=== PATIENT | male | born 1985 | race Caucasian/White ===

== ENCOUNTER 2020-03-10 07:25 | Outpatient (CLI) | payer SELFPAY | END 2020-03-10 07:26 | disposition critical access hospital (66) | LOC: EMS 07:25 | PROVIDERS: ATTEND Surgery | DX: R46.89 Other symptoms and signs involving appearance and behavior (principal); R41.82 Altered mental status, unspecified | CPT/HCPCS: A0425; A0429 ==

== ENCOUNTER 2020-03-10 07:48 | Emergency (ER) | payer SELFPAY ==
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
[2020-03-10 08:55] LABS: ACETAMINOPHEN < 10 ug/mL (10-30); ALBUMIN 4.7 g/dL (3.2-5.5); ALBUMIN/GLOBULIN RATIO 1.9 (1.0-2.2); ALKALINE PHOSPHATASE 43 IU/L (42-121); ALT ALANINE AMINOTRANSFERASE 17 IU/L (10-60); AST ASPARTATE AMINOTRANSFERASE 34 IU/L (10-42); BILIRUBIN,TOTAL 1.4 mg/dL (0.2-1.0); BUN - BLOOD UREA NITROGEN 17 mg/dL (6-20); CALCIUM 9.3 mg/dL (8.5-10.3); CARBON DIOXIDE - CO2 24 mmol/L (21-32); CHLORIDE 98 mmol/L (101-111); GLUCOSE 174 mg/dL (70-100); LIPASE 26 U/L (22-51); SALICYLATE < 6.0 mg/dL; SODIUM 138 mmol/L (135-145); TOTAL PROTEIN 7.2 g/dL (6.7-8.2)
[2020-03-10 09:00] LABS: BASOPHILS # (AUTO) 0.1 10^3/uL (0.0-0.1); BASOPHILS % (AUTO) 0.6 %; EOSINOPHILS % (AUTO) 0.3 %; LYMPHOCYTES # (AUTO) 0.9 10^3/uL (1.5-3.5); LYMPHOCYTES % (AUTO) 8.1 %; MEAN CORPUSCULAR HEMOGLOBIN 30.1 pg (27.0-31.0); MEAN CORPUSCULAR HGB CONC 34.1 g/dL (32.0-36.0); MEAN CORPUSCULAR VOLUME 88.2 fL (80.0-94.0); MEAN PLATELET VOLUME 10.6 fL (7.4-11.4); MONOCYTES # (AUTO) 0.6 10^3/uL (0.0-1.0); MONOCYTES % (AUTO) 5.5 %; NEUTROPHILS # (AUTO) 9.8 10^3/uL (1.5-6.6); NEUTROPHILS % (AUTO) 85.1 %; PLT - PLATELET COUNT 264 10^3/uL (130-450); RED BLOOD COUNT 4.65 10^6/uL (4.70-6.10); RED CELL DISTRIBUTION WIDTH 12.3 % (12.0-15.0); WHITE BLOOD COUNT 11.6 x10^3/uL (4.8-10.8)
[2020-03-10] MEDS ORDERED: OLANZapine 10 MG VIAL IM STA ×2 (09:02→09:25)
[2020-03-10] MEDS ORDERED: KETAMINE 500 MG/10 ML VIAL IM STA (09:07)
[2020-03-10] MEDS ORDERED: KETAMINE 500 MG/10 ML VIAL ONE (09:12)
[2020-03-10] MEDS ORDERED: SODIUM CHLORIDE 0.9% 1,000 ML IV STA ×3 (09:26→14:15)
[2020-03-10] MEDS ORDERED: KETAMINE 500 MG/10 ML VIAL IVP STA (09:32)
[2020-03-10 09:50] LABS: KETONES, SERUM (ACETEST) SMALL (NEGATIVE)
[2020-03-10 09:58] LABS: CK- CREATINE KINASE 708 IU/L (22-269)
[2020-03-10 10:19] LABS: GLUCOSE, URINE (UA) NEGATIVE (NEGATIVE); KETONES,URINE (UA) >=80 mg/dL (NEGATIVE); LEUKOCYTE ESTERASE, URINE NEGATIVE (NEGATIVE); NITRITE,URINE NEGATIVE (NEGATIVE); OCCULT BLOOD,URINE NEGATIVE (NEGATIVE); PROTEIN,URINE 30 mg/dL (NEGATIVE); UROBILINOGEN,URINE 0.2 (NORMAL) E.U./dL (NORMAL)
[2020-03-10 10:26] LABS: CLARITY,URINE HAZY (CLEAR)
[2020-03-10 10:27] LABS: VBG BASE EXCESS -2.4 mmol/L (-2 - +2); VBG PCO2 40.5 mmHg (41-51); VBG PH 7.367 (7.31-7.41); VBG PO2 89.9 mmHg (25-47)
[2020-03-10 10:28] LABS: BILIRUBIN,URINE NEGATIVE (NEGATIVE); ICTOTEST,URINE NEGATIVE
[2020-03-10 10:30] LABS: AMPHETAMINE SCREEN,URINE NEGATIVE (NEGATIVE); BENZODIAZEPINES SCREEN, URINE NEGATIVE (NEGATIVE); COCAINE SCREEN URINE NEGATIVE (NEGATIVE); METHADONE SCREEN, URINE NEGATIVE (NEGATIVE); METHAMPHETAMINES SCREEN, URINE NEGATIVE (NEGATIVE); MUDS CUTOFF CONCENTRATIONS N; OPIATE SCREEN, URINE NEGATIVE (NEGATIVE); OXYCODONE SCREEN, URINE NEGATIVE (NEGATIVE); PROPOXYPHENE SCREEN, URINE NEGATIVE (NEGATIVE); TRICYCLIC ANTIDEPRESSANT,URINE NEGATIVE (NEGATIVE)
[2020-03-10 10:45] LABS: RBC,URINE None Seen /HPF (0-5)
[2020-03-10 10:46] LABS: BACTERIA,URINE Few /HPF (None Seen); CRYSTALS,URINE 0-2 Calcium Oxalate /LPF; EPITHELIAL CELLS,UR RARE Transitional /HPF (<= Few); MUCUS,URINE Moderate Strands; SQUAMOUS EPITHELIAL CELL,UR RARE Squamous (<= Few)
--- NOTE | 2020-03-10 13:23 | CT Report ---
PROCEDURE: HEAD WO INDICATIONS: altered LOC TECHNIQUE: Noncontrast 4.5 mm thick angled axial sections acquired from the foramen magnum to the vertex. For r adiation dose reduction, the following was used: automated exposure control, adjustment of mA and/or kV according to patient size. COMPARISON: None. FINDINGS: Image quality: Study is degraded by moderate patient motion artifact. CSF spaces: Basal cisterns are patent. No extra-axial fluid collections. Ventricles are normal in size and shape. Brain: No midline shift. No intracranial masses or hemorrhage. Smith-white matter interface is norm al. Skull and face: Calvarium and visualized facial bones are intact, without suspicious lesions. Sinuses: Visualized sinuses and mastoids are clear. IMPRESSION: Within the limitations of this examination, no acute intracranial abnormalities are identified. No ev idence for mass or mass effect. No acute calvarial fractures. Reviewed by: Randal Nava MD on 03/10/2020 1:22 PM PDT Approved by: Randal Nava MD on 03/10/2020 1:22 PM PDT Station ID: [id number]
[2020-03-10] MEDS ORDERED: LORazepam 2 MG/ML VIAL IVP STA (13:50)
[2020-03-10] MEDS ORDERED: LORazepam 2 MG/ML VIAL ONE (13:55)
--- NOTE | 2020-03-10 22:07 | ED Physician Documentation ---
ED Addendum - Addendum Addendum: 03/10/20 22:04 I heard from Daniel Dickey (telepsych) at approximately 9:45 PM. We discussed the case and he was prepared to undertake telepsych evaluation. Patient's brother then confronted me in hallway and repeatedly insisted that patient needs to sleep. I explained to the brother that the process would need to move forward in order to provide patient with timely medical care, but patient's brother continued to insist that patient be allowed to sleep. Due to ED volume with a number of patients waiting to be seen, I did not have time to discuss this issue further with the brother. Plan is to try again to obtain the necessary consultation later tonight or in the morning.
[2020-03-11] MEDS ORDERED: NICOTINE 14 MG PATCH TOP STA (08:19)
[2020-03-11] MEDS ORDERED: INSULIN GLARGINE 300 UNIT/3 ML PEN SUBQ STA (12:37)
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
[2020-03-11 19:21] VITALS: BP 117/75
== END 2020-03-11 19:15 | disposition home or self-care (01) ==
LOC: ED 07:48
DX: F31.2 Bipolar disorder, current episode manic severe with psychotic features (principal); Z78.1 Physical restraint status; R00.0 Tachycardia, unspecified; E10.9 Type 1 diabetes mellitus without complications
CPT/HCPCS: 36415; 70450; 80320; 80329; 81001; 82009; 82550; 82553; 82803; 83690; 93005; 96361; 96372; 96374; 96375; 99285; A9270; G0426; J1815; J2060; 80053; 80306; 80307; 81003; 84443; 85025; 87086